=== PATIENT | male | born 1980 | race Caucasian/White ===

== ENCOUNTER 2018-05-30 19:22 | Emergency (ER) | payer OTHER ==
[2018-05-30] MEDS ORDERED: Lidocaine 1% 30 ML SDV INJECT ONE (19:41)
--- NOTE | 2018-05-31 02:45 | EDM.PDOC ---
ED HPI GENERAL MEDICAL PROBLEM - General Chief Complaint: Laceration Stated Complaint: laceration to left knee Time Seen by Provider: 05/30/18 19:35 Source of Information: Reports: Patient History Limitations: Reports: No Limitations - History of Present Illness INITIAL COMMENTS - FREE TEXT/NARRATIVE: Pt. presents to ER with complaints of laceration to L knee. He states that he sustained to laceration when he was attempting to get out of the [place] and into a boat. He states that the laceration bled perfusely. He states that his tetanus is UTD. He states that this happened just prior to coming to ER and denies any injury elsewhere. Location: Reports: Lower Extremity, Left left knee Pain Score (Numeric/FACES): 2 - Related Data Allergies Allergy/AdvReac Type Severity Reaction Status Date / Time No Known Allergies Allergy Verified 05/30/18 20:01 Home Meds: Home Meds Cetirizine HCl [Zyrtec] 10 mg PO DAILY 05/30/18 [History] Ranitidine [Zantac] 75 mg PO BID PRN 05/30/18 [History] Past Medical History - Past Surgical History HEENT Surgical History: Reports: Tonsillectomy GI Surgical History: Reports: Appendectomy Musculoskeletal Surgical History: Reports: Other (See Below) Other Musculoskeletal Surgeries/Procedures:: femur fx/surgery ED ROS GENERAL - Review of Systems Review Of Systems: See Below Constitutional: Reports: No Symptoms HEENT: Reports: No Symptoms Respiratory: Reports: No Symptoms Cardiovascular: Reports: No Symptoms Endocrine: Reports: No Symptoms GI/Abdominal: Reports: No Symptoms : Reports: No Symptoms Musculoskeletal: Reports: Other (laceration to L knee) Skin: Reports: No Symptoms Neurological: Reports: No Symptoms Psychiatric: Reports: No Symptoms Hematologic/Lymphatic: Reports: No Symptoms Immunologic: Reports: No Symptoms ED EXAM, SKIN/RASH Exam: See Below Exam Limited By: No Limitations General Appearance: Alert, WD/WN, No Apparent Distress Extremities: Normal Range of Motion, Normal Capillary Refill, Other (laceration 2.5cm in length vertical to L anterior knee) Neurological: Alert, Oriented, CN II-XII Intact, Normal Cognition, Normal Gait, Normal Reflexes, No Motor/Sensory Deficits ED SKIN PROCEDURES - Laceration/Wound Repair Left Anterior Knee Lac/Wound length In cm: 2.5 Appearance: Subcutaneous Distal NVT: Neuro & Vascular Intact, No Tendon Injury Anesthetic Type: Local Local Anesthesia - Lidocaine (Xylocaine): 1% Plain Local Anesthetic Volume: 4cc Skin Prep: Chlorhexidine (Hibiciens), Saline Exploration/Debridement/Repair: Wound Explored, Minimal Debridement Closed with: Sutures Suture Size: 4-0 # of Sutures: 4 Suture Type: Nylon, Interrupted Course - Vital Signs Last Recorded V/S: Last Vital Signs Temp 37.2 C 05/30/18 19:22 Pulse 88 05/30/18 19:22 Resp 16 05/30/18 19:22 BP 124/70 05/30/18 19:22 Pulse Ox 98 05/30/18 19:22 - Orders/Labs/Meds Meds: Medications Discontinued Medications Generic Name Dose Route Start Last Admin Trade Name Janki PRN Reason Stop Dose Admin Lidocaine HCl 30 ml 05/30/18 19:41 05/30/18 19:48 Xylocaine-Mpf 1% INJECT 05/30/18 19:42 5 ml ONETIME ONE Administration Departure - Departure Time of Disposition: 20:00 Disposition: Home, Self-Care 01 Condition: Good Clinical Impression: Laceration - Discharge Information Instructions: Laceration Care, Adult, Stitches, [place], or Adhesive Wound Closure Referrals: PCP,Not In Area [Primary Care Provider] - Forms: ED Department Discharge Additional Instructions: Keep area dry until Saturday morning. Sutures out in 12 days. If you do not anticipate the area getting dirty, keep open to air. Return if redness, swelling, or discharge from the area.
== END 2018-05-30 20:20 | disposition home or self-care (01) ==
LOC: VM.ED 19:22
DX: S81.012A Laceration without foreign body, left knee, initial encounter (principal); Y29.XXXA Contact with blunt object, undetermined intent, initial encounter
CPT/HCPCS: 12001; 99282